=== PATIENT | male | born 1955 | race Two or more races ===

== ENCOUNTER 2022-09-03 10:12 | Emergency (ER) | payer MEDICARE, MEDICAID ==
[2022-09-03 11:00] VITALS: BP 138/70
[2022-09-03] MEDS ORDERED: HYDROcodone-ACET 5/325MG TAB PO ONE (11:15)
[2022-09-03] MEDS ORDERED: ENAL10TA12 PO (12:11)
[2022-09-03] MEDS ORDERED: METF500S PO (12:11)
[2022-09-03] MEDS ORDERED: TRAM-297 PO (12:11)
== END 2022-09-03 12:17 | disposition home or self-care (01) ==
LOC: ER 10:12
DX: M17.11 Unilateral primary osteoarthritis, right knee (principal); M16.11 Unilateral primary osteoarthritis, right hip; Z76.0 Encounter for issue of repeat prescription; Z79.899 Other long term (current) drug therapy; I12.9 Hypertensive chronic kidney disease with stage 1 through stage 4 chronic kidney disease, or unspecified chronic kidney disease; E11.22 Type 2 diabetes mellitus with diabetic chronic kidney disease; N18.9 Chronic kidney disease, unspecified
CPT/HCPCS: 73502; 73562